=== PATIENT | female | born 1970 ===

== ENCOUNTER 2016-06-23 08:24 | Emergency (ER) | payer OTHER ==
[2016-06-23 08:33] VITALS: BMI 38.0
--- NOTE | 2016-06-23 08:54 | C.PDOC ---
History Of Present Illness 45 y/o female presents to the ED complaining of fever, cough, and body aches x 2 days. Patient denies any throat pain, chest pain, shortness of breath, abdominal pain, nausea, vomiting, urinary symptoms, or other complaints. Time Seen by Provider: 06/23/16 08:25 Chief Complaint (Nursing): Flu-like Symptoms History Per: Patient History/Exam Limitations: no limitations Onset/Duration Of Symptoms: Days (2), Gradual, Persistent Current Symptoms Are (Timing): Still Present Location Of Pain: Diffuse Myalgias Sick Contacts (Context): None Associated Symptoms: Fever, Cough Ear Symptoms: Bilateral: None Recent travel outside of the [place]: No Past Medical History Reviewed: Historical Data, Nursing Documentation, Vital Signs Vital Signs: Last Vital Signs Temp 98.9 F 06/23/16 09:52 Pulse 93 H 06/23/16 09:52 Resp 18 06/23/16 09:53 BP 116/70 06/23/16 09:52 Pulse Ox 98 06/23/16 09:54 - Medical History PMH: No Chronic Diseases Surgical History: No Surg Hx Family History: States: No Known Family Hx - Social History Hx Tobacco Use: No Hx Alcohol Use: No Hx Substance Use: No - Immunization History Hx Tetanus Toxoid Vaccination: No Hx Influenza Vaccination: No Hx Pneumococcal Vaccination: No Review Of Systems Except As Marked, All Systems Reviewed And Found Negative. Constitutional: Positive for: Fever, Other (body aches) ENT: Negative for: Throat Pain Cardiovascular: Negative for: Chest Pain Respiratory: Positive for: Cough. Negative for: Shortness of Breath Gastrointestinal: Negative for: Nausea, Vomiting, Abdominal Pain Genitourinary: Negative for: Dysuria, Hematuria Physical Exam - Physical Exam Appears: Non-toxic, No Acute Distress Skin: Normal Color, Warm, Dry Head: Atraumatic, Normacephalic Eye(s): bilateral: Normal Inspection, PERRL Ear(s): Bilateral: Normal Nose: Normal Oral Mucosa: Moist Throat: Normal, No Erythema, No Exudate Neck: Normal ROM, Supple Chest: Symmetrical Cardiovascular: Rhythm Regular Respiratory: Normal Breath Sounds, No Rales, No Rhonchi, No Wheezing Gastrointestinal/Abdominal: Normal Exam, Soft, No Tenderness Back: Normal Inspection, No CVA Tenderness Extremity: Normal ROM, No Swelling Neurological/Psych: Oriented x3, Normal Speech, Normal Cognition ED Course And Treatment - Laboratory Results Urine POC: Negative O2 Sat by Pulse Oximetry: 98 (ra) Pulse Ox Interpretation: Normal - Radiology CXR: Interpreted by Me CXR Interpretation: Yes: No Acute Disease - Other Rad Chest X-Ray X-Ray: Viewed By Me, Read By Radiologist Interpretation: Accession No. : [id number]. Patient Name / ID : RUPINDER WARD / [id number]. Exam Date : 06/23/2016 08:53:47 ( Approved ). Study Comment : Sex / Age : F / 45Y. Creator : Rickie Cornell MD. Dictator : Rickie Cornell MD. Relief Captain : Assessment Coordinator : Rickie Cornell MD. Approver2 : Report Date : 06/23/2016 09:15:14. My Comment : . HISTORY: Cough. COMPARISON: No prior. TECHNIQUE: Chest PA and lateral. FINDINGS: LUNGS: Diffuse increased interstitial lung markings suggestive for mild venous congestion versus subtle diffuse interstitial infiltrates. Clinical correlation. PLEURA: No significant pleural effusion identified. No pneumothorax apparent. CARDIOVASCULAR: Normal. OSSEOUS STRUCTURES: No significant abnormalities. VISUALIZED UPPER ABDOMEN: Normal. OTHER FINDINGS: None. IMPRESSION: Diffuse increased interstitial lung markings suggestive for mild venous congestion versus subtle diffuse interstitial infiltrates. Clinical correlation. Progress Note: Treated with tylenol 650 mg PO and duonebs x 2. On re- evaluation lungs clear Reassessment Condition: Improved Medical Decision Making Medical Decision Making: Plan: * CXR * U-Preg * Influenza A B * Tylenol PO, Duoneb Disposition Counseled Patient/Family Regarding: Studies Performed, Diagnosis, Need For Followup, Rx Given - Disposition Referrals: [facility] [Outside] [facility] [Outside] Disposition: HOME/ ROUTINE Disposition Time: 10:00 Condition: IMPROVED Additional Instructions: Drink lots of fluids Follow up with PMD or clinic for further evaluation Prescriptions: Naproxen [Naprosyn] 1 tab PO BID PRN #25 tab PRN Reason: Pain Instructions: Influenza (ED) Forms: Work Excuse Print Language: KYRGYZ - POA Present On Arrival: None - Clinical Impression Clinical Impression: Influenza - 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 - Scribe Statement The provider has reviewed the documentation as recorded by the Scribe (Elaina Stafford) All medical record entries made by the Scribe were at my direction and personally dictated by me. I have reviewed the chart and agree that the record accurately reflects my personal performance of the history, physical exam, medical decision making, and the department course for this patient. I have also personally directed, reviewed, and agree with the discharge instructions and disposition.
[2016-06-23] MEDS ORDERED: Albuterol-Ipratrop 3 mg / 0.5 (3 ml) UD ONE (09:11)
--- NOTE | 2016-06-23 09:16 | RAD ---
HISTORY: Cough COMPARISON: No prior. TECHNIQUE: Chest PA and lateral FINDINGS: LUNGS: Diffuse increased interstitial lung markings suggestive for mild venous congestion versus subtle diffuse interstitial infiltrates. Clinical correlation. PLEURA: No significant pleural effusion identified. No pneumothorax apparent. CARDIOVASCULAR: Normal. OSSEOUS STRUCTURES: No significant abnormalities. VISUALIZED UPPER ABDOMEN: Normal. OTHER FINDINGS: None. IMPRESSION: Diffuse increased interstitial lung markings suggestive for mild venous congestion versus subtle diffuse interstitial infiltrates. Clinical correlation.
[2016-06-23] MEDS: Albuterol-Ipratrop 3 mg / 0.5 (3 ml) UD IH SCH ×2 (09:20→09:30)
[2016-06-23 09:52] VITALS: BP 116/70; PULSE 93; RESP 18; TEMP 98.9
[2016-06-23 09:54] VITALS: O2SAT 98
--- NOTE | 2016-07-06 12:24 | CARD ---
APPROVED REPORT EKG Measurement Heart [id number] <Conclusion> Normal sinus rhythm Normal ECG
== END 2016-06-23 10:24 | disposition home or self-care (01) ==
LOC: C.ER 08:24
DX: J11.1 Influenza due to unidentified influenza virus with other respiratory manifestations (principal)